=== PATIENT | male | born 1955 | race Caucasian/White ===

== ENCOUNTER 2020-08-17 20:06 | Inpatient (IN) | payer MEDICARE, OTHER, SELFPAY ==
--- NOTE | ~2020-08-17 | CT_ITS ---
EXAMINATION: CT brain wo con EXAM DATE: 08/17/2020 20:37 INDICATION: Transient alteration of awareness. Confusion. TECHNIQUE: Spiral CT of the head was performed without contrast. Axial, coronal and sagittal images were reviewed. The dose-length product (DLP) for this examination was 605.33 mGy-cm. The exposure w as tailored according to patient size, and iterative reconstruction (ASIR) was used as additional dos e reduction technique. Comparison is made to prior examination from 12/01/2018 . FINDINGS: Again there are a couple of moderate size left frontal lobe infarctions, middle cerebral a rtery distribution. Old left caudate head lacunar infarction. There is no acute intraparenchymal hemo rrhage. No evidence of intraparenchymal brain mass lesion. No evidence of acute infarction. Please note that initial head CT has limited sensitivity for small or acute infarctions. There is mild per iventricular and subcortical hypodensity, nonspecific but probably related to small vessel ischemic d isease. There is moderate prominence of the sulci and ventricles related to cerebral atrophy. The re is intracranial carotid arteriosclerosis. There are no extra-axial collections. There is no mass effect or midline shift. Patient has had bilateral ocular lens surgery. Soft tissue is unremarkabl e. The visualized sinuses and mastoid air cells are well aerated. IMPRESSION: 1. No acute intracranial findings. 2. Chronic age related findings. 3. Old left MCA distribution infarctions unchanged. Reviewed, dictated and finalized at location A.
--- NOTE | ~2020-08-17 | CT_ITS ---
EXAMINATION: CT abdomen pelvis wo con EXAM DATE: 08/17/2020 22:35 INDICATION: Abdominal pain, vomiting . TECHNIQUE: Spiral CT of the abdomen and pelvis was performed without contrast. Axial, coronal and s agittal images of the abdomen and pelvis were reviewed. The dose-length product (DLP) for this exami nation was 1247.96 mGy-cm. The exposure was tailored according to patient size (auto mA exposure con trol), and iterative reconstruction (ASIR) was used as additional dose reduction technique. There is no prior study for comparison. FINDINGS: There is hepatic steatosis without suspicious focal lesion identified. Spleen, adrenal glan ds, pancreas are unremarkable. Gallbladder is unremarkable. No biliary obstruction. There is left inferior calyceal stone measuring 7 mm. No ureteral stones or hydronephrosis.There is an exophytic le ft renal lesion off the posterior cortex midpole measuring about 1.3 cm, isodense to the renal parenc hyma. Could be a hemorrhagic cyst or solid mass. The prostate is unremarkable. Small left inguinal fa t-containing hernia. The bladder is unremarkable. There is no retroperitoneal or pelvic lymphadenop athy. There is mild scattered arteriosclerotic disease. Small umbilical fat-containing hernia. Ileocolic anastomosis site. Possible appendectomy. Distal aspect of the esophagus appears edematous, probably esophagitis. The stomach and small bowel are unremarkable. There is expected amount of colo magen stool. No free intraperitoneal gas. The heart is normal in size. There are no pericardial or pleural effusions. The lung bases are unremarkable. The bones are unremarkable. IMPRESSION: 1. No acute intra-abdominal findings. 2. Indeterminate left renal mass, could be hemorrhagic cyst or solid. Nonemergent follow-up kidney u ltrasound might be enough to distinguish. 3. Left nephrolithiasis. 4. Probable esophagitis. 5. Hepatic steatosis. 6. Small hernias. Reviewed, dictated and finalized at location A. IMPRESSION: 1. No acute intra-abdominal findings. 2. Indeterminate left renal mass, could be hemorrhagic cyst or solid. Nonemerg ent follow-up kidney ultrasound might be enough to distinguish. 3. Left nephrolithiasis. 4. Probable esophagitis. 5. Hepatic steatosis. 6. Small hernias.
--- NOTE | ~2020-08-17 | CT_ITS ---
EXAMINATION:CT chest high resolution wo ks DATE: 08/20/2020 14:20 INDICATION: Leukocytosis. TECHNIQUE: Computed tomography (CT) of the chest was performed without intravenous contrast. Automate d exposure control and iterative reconstruction technique were employed. The dose-length product (DLP ) was 446.44 mGy-cm. COMPARISON: CT abdomen and pelvis 08/17/2020 FINDINGS: There is mild emphysema. There is mild scarring at the lung apices. There is a 2 mm nodule in right middle lobe, likely benign. There is a 3 mm nodule in right upper lobe, likely benign. There is a 4 mm nodule left major fissure, likely benign. There is mild atelectasis bilaterally. No pleura l effusion. The heart size is normal. There are coronary artery calcifications. No pericardial effusi on. There is mild bilateral gynecomastia. There is diffuse hepatic steatosis. There is mild thoracic spondylosis. IMPRESSION: 1. Mild emphysema. 2. Diffuse hepatic steatosis. Reviewed, dictated and finalized at location B.
--- NOTE | ~2020-08-17 | XR_ITS ---
EXAMINATION: XR chest 1V portable EXAM DATE: 08/17/2020 20:30 INDICATION: Transient alteration of awareness. TECHNIQUE: Portable AP frontal chest x-ray was obtained. Comparison is made to prior examination from 12/01/2018. FINDINGS: The lungs are clear. There are no pleural effusions. The cardiomediastinal silhouette is within normal limits. There is no pneumothorax suspected. The bones and soft tissues are unremarkab le. IMPRESSION: No acute cardiopulmonary findings. Reviewed, dictated and finalized at location A.
[2020-08-17 20:06] VITALS: BP 183/96; PULSE 113; RESP 16; TEMP 36.8; O2SAT 94
--- NOTE | 2020-08-17 20:19 | ECG_ITS ---
Measurements Intervals [place] Rate: 80 P: 56 WV: 148 QRS: 77 QRSD: 82 T: 83 QT: 379 QTc: 438 Interpretive Statements SINUS RHYTHM WITH SINUS ARRHYTHMIA ATRIAL PREMATURE COMPLEXES POSSIBLE LEFT ATRIAL ENLARGEMENT BASELINE ARTIFACT- V1, V4-V6 BORDERLINE ECG Electronically Signed On 08-18-2020 6:53:48 CDT by Nicolás Jameson D.O.
--- NOTE | 2020-08-17 20:45 | ED.GENADULT ---
HPI - General Adult General Chief complaint: Altered Mental Status Stated complaint: ams Time Seen by Provider: 08/17/20 20:17 Source: patient and family History of Present Illness HPI narrative: Patient is a 64 y/o male brought in by EMS for altered mental status. It's unknown how long this has been going on. Daughter states that when she attempted to call him and he sound confused. She states that she has been trying to call him and sometimes he does not answer, but it's not unusual for him. However, he is more confused today. Daughter states that it's been a few days when he last sound normal for himself. He has been vomiting for several days. Patient is poor historian and unable to provide additional history. Related Data Home Medications Medication Instructions Recorded Confirmed furosemide [Lasix] 10 mg PO DAILY 08/17/20 08/18/20 insulin glargine 33 unit SUBCUT DAILY 08/17/20 08/17/20 quetiapine [Seroquel] 100 mg PO HS 08/17/20 08/17/20 atorvastatin 20 mg PO HS 08/18/20 08/18/20 lisinopril 2.5 mg PO DAILY 08/18/20 08/18/20 pioglitazone 30 mg PO DAILY 08/18/20 08/18/20 Allergies Allergy/AdvReac Type Severity Reaction Status Date / Time varenicline Allergy Unknown Unknown Verified 03/04/19 18:22 Review of Systems Review of Systems: ROS unobtainable: Yes unobtainable due to mental status [facility] Social History Social History Smoking packs per day: 1 Smoking cigarettes per day: 20.0 Smoking status: Current every day smoker Tobacco type: cigarettes Substance use: current Substance use type: marijuana Spiritual care concerns: No Exam Const: General: well developed Orientation/consciousness: oriented to person and confusion HENMT: Head: normocephalic Ears: external ears normal General nose exam: Normal external nose present Eyes: General: appearance normal, both eyes and all related structures Conjunctivae: conjunctivae normal Neck: Neck: normal visual inspection and full ROM Chest: Chest palpation & inspection: normal inspection of the chest and no tenderness Resp: Effort & Inspection: normal respiratory effort Auscultation: clear to auscultation bilaterally Cardio: Rate: tachycardic Rhythm: regular rhythm GI: GI Palp: No abdominal tenderness and Yes Soft to palpation Skin: General skin exam: normal color and turgor normal Neuro: General: oriented to person and confusion Cognition (Neuro): abnormal cognition Extrem: General: normal to inspection, full ROM and no pedal edema Psych: Appearance: grossly normal Mental Status: mental status grossly normal Affect: normal affect Course Reevaluation(s) Reevaluation #1: A focus exam (Vital Signs Reviewed, Cardiopulmonary Exam, Capillary Refill Evaluation, Peripheral Pulse Evaluation and Skin Examination) performed. Date: 08/17/20 Time: 23:20 Consultations Consultation #1: Discussed with Dr. Quan, who agrees to accept to ICU and will consult. Date: 08/17/20 Time: 22:56 Consultation #2: Discussed with Dr. Looney, who agrees to admit. Date: 08/17/20 Time: 23:04 Vital Signs Vital signs: Vital Signs Temperature 36.8 C 08/17/20 20:06 Pulse Rate 113 H 08/17/20 20:06 Respiratory Rate 16 08/17/20 20:06 Blood Pressure 183/96 H 08/17/20 20:06 Pulse Oximetry 94 08/17/20 20:06 Temperature 36.4 C 08/22/20 14:00 Pulse Rate 82 08/22/20 14:00 Respiratory Rate 16 08/22/20 14:00 Blood Pressure 117/79 08/22/20 14:00 Pulse Oximetry 96 08/22/20 14:00 Medical Decision Making Vital Signs Vital Signs: Vital Signs Temperature 36.8 C 08/17/20 20:06 Pulse Rate 113 H 08/17/20 20:06 Respiratory Rate 16 08/17/20 20:06 Blood Pressure 183/96 H 08/17/20 20:06 Pulse Oximetry 94 08/17/20 20:06 Temperature 36.4 C 08/22/20 14:00 Pulse Rate 82 08/22/20 14:00 Respiratory Rate 16 08/22/20 14:00 Blood Pressure 117/79 08/22/20 14:00 Pulse Oximetry 96 08/22/20 14:00 Lab Data Resu
[2020-08-17 21:13] LABS: Basophils Absolute Auto 0.1 K/mm3 (0.0-0.1); Basophils Percent Auto 0.4 % (0.2-1.2); Hematocrit 44.8 % (42.0-52.0); Hemoglobin 15.1 g/dL (14.0-18.0); Immature Granulocyte Absolute 0.27 K/mm3 (0.00-0.031); Immature Granulocyte Percent A 1.1 % (0-0.5); Lymphocytes Absolute Auto 1.14 K/mm3 (0.9-3.2); Lymphocytes Percent Auto 4.7 % (18.3-44.2); Mean Corpuscular HGB Conc 33.7 g/dl (32-36); Mean Corpuscular Hemoglobin 28.5 pg (26-34); Mean Corpuscular Volume 84.7 fl (80-100); Mean Platelet Volume 10.7 fl (7.4-10.4); Monocytes Absolute Auto 1.1 K/mm3 (0.1-0.6); Monocytes Percent Auto 4.3 % (2.6-8.5); Neutrophils Absolute Auto 21.8 K/mm3 (1.3-6.7); Neutrophils Percent Auto 89.5 % (45.5-73.1); Platelet Count Result 422 k/mm3 (150-375); Red Blood Count 5.29 M/mm3 (4.6-6.20); Red Cell Distribution Width 13.2 % (11.5-14.5); White Blood Count 24.4 K/mm3 (4.5-10.0)
[2020-08-17] MEDS: ONDANSETRON HCL ODT 4 MG TABLET (21:16)
[2020-08-17 21:24] LABS: Albumin Level 4.9 g/dL (3.5-5.1); Alkaline Phosphatase 88 U/L (38-126); Anion Gap 24 mmol/L (8-16); Aspartate Amino Transferase 41 U/L (17-59); Bilirubin,Total 1.5 mg/dL (0.2-1.3); Blood Urea Nitrogen 23 mg/dL (9-20); Calcium 10.3 mg/dL (8.4-10.2); Carbon Dioxide 17 mmol/L (22-30); Chloride 96 mmol/L (98-107); Estimated Glomerular Filt Rate 44; Glucose 448 mg/dL (75-110); Potassium 4.5 mmol/L (3.4-5.0); Sodium 137 mmol/L (137-145)
[2020-08-17 21:36] LABS: Alanine Aminotransferase 51 U/L (4-50)
[2020-08-17] MEDS: LORazepam INJ (*CRX) 2 MG/ML VIAL 1 MG IV PUSH (21:45)
[2020-08-17 21:54] LABS: Alveolar/Arterial O2 Gradient 30.3 mmHg; Base Excess ABG -5.6 mEq/l (+/-2.0); Fractional Inspired Oxygen 21 %; Oxygen Content ABG 20.5 %vol (16.0-22.0); Oxygen Saturation ABG 98.2 % (95.0-100.0); Oxyhemoglobin 96.9 % THb (90.0-100.0); PO2 ABG 98.8 mmHg (80.0-100.0)
[2020-08-17 21:55] LABS: Device ROOM AIR; Modified Allen's Test Pass; PCO2 ABG 17.2 mmHg (35.0-45.0); Site Drawn LEFT RADIAL; pH ABG 7.528 (7.350-7.450)
[2020-08-17 22:06] LABS: Add Urine Microscopic? YES; Appearance Urine Clear (Clear); Bilirubin Urine Negative (Negative); Blood Urine 1+ (Negative); Color Urine Yellow (Yellow); Glucose Urine UA 3+ mg/dL (Negative); Ketones Urine 2+ mg/dL (Negative); Leukocyte Esterase Ur Negative LEU/UL (Negative); Nitrate Urine Negative (Negative); Protein Urine 3+ mg/dL (Negative); RBC Urine 0-2 /hpf (0-2); Specific Grav Ur 1.026 (1.001-1.035); Urobilinogen Urine Negative mg/dL (<2.0); WBC Urine 0-3 /hpf
[2020-08-17 22:35] LABS: Lactic Acid Reflex 5.5 mmol/L (0.7-2.1)
[2020-08-17 23:08] LABS: Beta-Hydroxybutyrate/Acetoacetate 6.03 mmol/L (0.02-0.27)
[2020-08-17 23:26] VITALS: BP 143/86; PULSE 102; RESP 18; O2SAT 96
[2020-08-18] VITALS (8 sets, daily range): BP systolic 120–170; BP diastolic 65–95; PULSE 85–133; RESP 13–20; TEMP 36.2–37.1; O2SAT 88–100
--- NOTE | 2020-08-18 00:12 | PM.IMHP ---
H&P: HPI History of Present Illness Date/Time: 08/18/20 00:12 Chief Complaint: ALTERED MENTAL STATUS Narrative: THIS IS A 64-YEAR-OLD MALE WITH PAST MEDICAL HISTORY SIGNIFICANT FOR TYPE 2 DIABETES MELLITUS INSULIN DEPENDENT BIPOLAR DISORDER STROKE RIGHT-SIDED HEMIPARESIS PATIENT LIVES AT ASSISTED LIVING FACILITY HE WAS BROUGHT TO THE EMERGENCY ROOM AFTER DAUGHTER WAS CONCERNED DUE TO NOT BEEN ABLE TO COMMUNICATE WITH HIM OVER THE PHONE HIS OWN CONFUSED COULD NOT GET HIS WORDS OUT PER DAUGHTER WHO IS AT BEDSIDE PATIENT HAS BEEN HAVING VOMITING FOR SEVERAL DAYS PATIENT IS UNABLE TO GIVE ANY HISTORY HOWEVER HE KNOWS THAT HE IS AT [facility] BUT HE CAN'T WHY HE IS IN THE HOSPITAL. PRELIMINARY WORKUP WAS SIGNIFICANT FOR DKA AN ELEVATED GLUCOSE AND BETA HYDROXYBUTYRATE. A CT OF THE HEAD WAS UNREMARKABLE WELL CT OF ABDOMEN AND PELVIS. PATIENT ALSO WITH ELEVATED LACTIC ACID. Review of Systems Review of Systems: ROS unobtainable: Yes unobtainable due to mental status Neurologic: Reports confusion Psychiatric: Psychiatric: Reports confusion Meds Home Medications and Allergies Home Medications Medication Instructions Recorded Confirmed Type atorvastatin 03/04/19 History cyclobenzaprine 10 mg PO TID PRN #15 tablet 03/04/19 Rx gabapentin 03/04/19 History midodrine mg 03/04/19 History quetiapine 03/04/19 History furosemide [Lasix] 20 mg PO BID 08/17/20 08/17/20 History insulin glargine 33 unit SUBCUT DAILY 08/17/20 08/17/20 History metformin 1,000 mg PO BID 08/17/20 08/17/20 History quetiapine [Seroquel] 100 mg PO HS 08/17/20 08/17/20 History Allergies Allergy/AdvReac Type Severity Reaction Status Date / Time varenicline Allergy Unknown Unknown Verified 03/04/19 18:22 Vital Signs Vital Signs - 24 hr 08/17/20 20:06 08/17/20 23:26 Temperature 98.3 F Pulse Rate 113 H 102 H Respiratory Rate 16 18 Blood Pressure 183/96 H 143/86 H Pulse Oximetry 94 96 Exam Const: General: well developed and confusion Orientation/consciousness: oriented to person and confusion HENMT: Head: normocephalic Ears: external ears normal General nose exam: Normal external nose present Eyes: General: appearance normal, both eyes and all related structures Conjunctivae: conjunctivae normal Neck: Neck: normal visual inspection and full ROM Chest: Chest palpation & inspection: normal inspection of the chest and no tenderness Resp: Effort & Inspection: normal respiratory effort Auscultation: clear to auscultation bilaterally Cardio: Rate: tachycardic Rhythm: regular rhythm GI: Inspection: other (OLD SURGICAL SCAR LIMITED ABDOMEN) GI Palp: No abdominal tenderness, Yes Soft to palpation and Yes No hepatosplenomegaly present Auscultation: normal bowel sounds Skin: General skin exam: normal color and turgor normal Neuro: General: oriented to person and confusion Cognition (Neuro): abnormal cognition Extrem: General: normal to inspection, full ROM and no pedal edema Psych: Appearance: grossly normal Mental Status: mental status grossly normal Affect: normal affect H&P: Results Labs Labs: Short CBC 08/17/20 Range/Units 21:07 WBC 24.4 H (4.5-10.0) K/mm3 Hgb 15.1 (14.0-18.0) g/dL Hct 44.8 (42.0-52.0) % Plt Count 422 H (150-375) k/mm3 BMP 08/17/20 21:07 Sodium 137 Potassium 4.5 Chloride 96 L Carbon Dioxide 17 L BUN 23 H Creatinine 1.60 H Glucose 448 H Calcium 10.3 H Liver Function 08/17/20 Range/Units 21:07 Total Bilirubin 1.5 H (0.2-1.3) mg/dL AST 41 (17-59) U/L ALT 51 H (4-50) U/L Alkaline Phosphatase 88 (38-126) U/L Albumin 4.9 (3.5-5.1) g/dL Urine 08/17/20 Range/Units 21:58 Urine Color Yellow (Yellow) Urine Appearance Clear (Clear) Urine pH 6.0 (5.0-9.0) Ur Specific [place] 1.026 (1.001-1.035) Urine Protein 3+ H (Negative) mg/dL Urine Glucose (UA) 3+ H (Negative) mg/dL Assessment and Plan Asse
--- NOTE | 2020-08-18 00:25 | PC.NURSE ---
This patient, Ralph Ruiz, was admitted to Intensive Care Unit-8. Patient/family oriented to hospital policies and general routines including ID bracelet, bed and alarms, visiting hours, pain management, procedures, bathroom and other care routines, personal items, smoking policy, room service/diet, and visiting hours. Information on how to activate the Rapid Response Team has been discussed. Patient/Family are encouraged to report perceived risks to care and to ask questions if they do not understand what they are told or what they should do.
[2020-08-18] MEDS: ONDANSETRON INJ 4 MG/2 ML VIAL (00:27)
[2020-08-18] MEDS: INSULIN HUMAN REGULAR (*BKC) 100 UNITS in SODIUM CHLORIDE 0.9% IV 99 ML 9 UNITS IV CONT (00:39)
[2020-08-18] MEDS: SODIUM CHLORIDE 0.9% IV 1,000 ML 150 ML IV CONT (00:40)
[2020-08-18 00:43] LABS: Glucose Point of Care > 500 (65-105)
[2020-08-18 00:54] LABS: Anion Gap 19 mmol/L (8-16); Blood Urea Nitrogen 26 mg/dL (9-20); Calcium 9.9 mg/dL (8.4-10.2); Carbon Dioxide 22 mmol/L (22-30); Chloride 97 mmol/L (98-107); Estimated Glomerular Filt Rate 47; Glucose 455 mg/dL (75-110); Magnesium 1.7 mg/dL (1.6-2.3); Phosphorus 3.2 mg/dL (2.5-4.5); Potassium 4.5 mmol/L (3.4-5.0); Sodium 138 mmol/L (137-145)
[2020-08-18 01:14] LABS: Reflex Lactic Acid Yes or No Add Lactic
[2020-08-18] MEDS: FUROSEMIDE INJ 40 MG/4 ML VIAL 10 MG IV PUSH (01:29)
[2020-08-18] MEDS: INSULIN HUMAN REGULAR (*BKC) 100 UNITS/ML 10 UNITS IV PUSH (01:29)
[2020-08-18 01:36] LABS: Glucose Point of Care 441 (65-105)
[2020-08-18] MEDS: HALOPERIDOL LACTATE 5 MG/ML VIAL IM (02:14)
[2020-08-18 02:33] LABS: Glucose Point of Care 331 (65-105)
[2020-08-18 03:37] LABS: Glucose Point of Care 236 (65-105)
[2020-08-18] MEDS: KCL 20 MEQ/D5/0.45% SOD CHL 1,000 ML 150 ML IV CONT (03:40)
[2020-08-18 04:42] LABS: Glucose Point of Care 233 (65-105)
[2020-08-18 05:30] LABS: Glucose Point of Care 203 (65-105)
[2020-08-18 06:24] LABS: Glucose Point of Care 189 (65-105)
[2020-08-18 06:36] LABS: Anion Gap 8 mmol/L (8-16); Blood Urea Nitrogen 29 mg/dL (9-20); Calcium 9.3 mg/dL (8.4-10.2); Carbon Dioxide 27 mmol/L (22-30); Chloride 106 mmol/L (98-107); Estimated Glomerular Filt Rate 44; Glucose 179 mg/dL (75-110); Potassium 3.9 mmol/L (3.4-5.0); Sodium 141 mmol/L (137-145)
[2020-08-18 07:29] LABS: Hemoglobin A1C 11.8 % (<5.7)
[2020-08-18] MEDS: SODIUM CHLORIDE 0.9% IV 1,000 ML 999 ML IV CONT (08:30)
[2020-08-18 08:35] LABS: Glucose Point of Care 106 (65-105)
[2020-08-18] MEDS: INSULIN GLARGINE (*BKC) 100 UNITS/ML 33 UNITS SUB-Q (08:39)
[2020-08-18] MEDS: MIDODRINE HCL 2.5 MG TABLET BY MOUTH ×3 (08:43→17:18)
--- NOTE | 2020-08-18 09:36 | WPDCNINT ---
Assessment and Plan Assessment and plan (1) DKA (diabetic ketoacidoses): Qualifiers: Diabetes mellitus complication detail: without coma Diabetes mellitus type: type 2 Qualified Code(s): E11.10 - Type 2 diabetes mellitus with ketoacidosis without coma Code(s): E11.10 - Type 2 diabetes mellitus with ketoacidosis without coma Status: Acute Assessment and Plan: Patient presented with altered mental status, nausea and vomiting for few days, elevated blood sugars, elevated beta hydroxybutyrate,, metabolic acidosis with increased anion gap -patient was given IV fluids, started on insulin infusion with correction of his anion gap -patient was transition to long-acting insulin and sliding scale insulin -will start Lantus and high-dose sliding scale -resume diabetic diet (2) Sepsis: Qualifiers: Sepsis acute organ dysfunction status: unspecified Sepsis type: sepsis due to unspecified organism Qualified Code(s): A41.9 - Sepsis, unspecified organism Code(s): A41.9 - Sepsis, unspecified organism Status: Acute Assessment and Plan: Patient with elevated WBC count, CT scan of the abdomen and pelvis not show any obvious signs of infection, chest x-ray did not show any acute cardiopulmonary disease -cultures have been obtained -on ceftriaxone and vancomycin, will deescalate if cultures are negative (3) Altered mental status: Code(s): R41.82 - Altered mental status, unspecified Status: Acute Assessment and Plan: Brain did not show any acute intracranial findings, old left MCA distribution infarctions unchanged, chronic age-related finding Additional Plan Discussed with patient updated with his condition and plan of care. Code status: Do not resuscitate Critical care time spent: 44 minutes This dictation may have been done utilizing a voice recognition system. Attempts have been made to correct errors. However, there may be uncorrected grammatical, spelling, and recognition errors present. Due to a high probability of clinically significant, life threatening deterioration, the patient required my highest level of preparedness to intervene emergently and I personally spent this critical care time directly and personally managing the patient. This critical care time included obtaining a history; examining the patient; pulse oximetry; ordering and review of studies; arranging urgent treatment with development of a management plan; evaluation of patient's response to treatment; frequent reassessment; and discussions with other providers. It was exclusive of separately billable procedures and treating other patients and teaching time. Please see Assessment and Plan section and the rest of the note for further information on patient assessment and treatment Operations Lead Consult Note Consult date: 08/18/20 Time Seen: 07:04 HPI: Ralph Ruiz is a 64 year old male with history of diabetes type 2, insulin dependent. Patient also has a history of bipolar disorder, history of stroke with right-sided hemiparesis. Patient lives in an assisted living facility and presented to the ED via EMS with altered mental status, confusion. According the medical records the daughter started patient was confused and could not get his words correct. She also states that he has been vomiting for several days. In the ER patient was found to be in DKA, with elevated to hydroxybutyrate, elevated anion gap and elevated blood sugars. Patient also had leukocytosis and lactic acidosis along with acute kidney injury patient was given 3 L of IV fluids in the ER, started on insulin infusion and transferred to the ICU for further management. Patient seen and examined this the ICU. Is awake, alert, oriented x2 he did not know the year. Able to answer all questions and follows simple commands. Patient was given additional IV fluid bolus since urine output was low. Anion gap has closed, blood sugars have been good
[2020-08-18 10:18] LABS: Basophils Absolute Auto 0.1 K/mm3 (0.0-0.1); Basophils Percent Auto 0.3 % (0.2-1.2); Hematocrit 37.2 % (42.0-52.0); Hemoglobin 12.5 g/dL (14.0-18.0); Immature Granulocyte Absolute 0.26 K/mm3 (0.00-0.031); Lymphocytes Absolute Auto 1.47 K/mm3 (0.9-3.2); Lymphocytes Percent Auto 5.5 % (18.3-44.2); Mean Corpuscular HGB Conc 33.6 g/dl (32-36); Mean Corpuscular Hemoglobin 28.9 pg (26-34); Mean Corpuscular Volume 85.9 fl (80-100); Mean Platelet Volume 10.4 fl (7.4-10.4); Monocytes Absolute Auto 2.7 K/mm3 (0.1-0.6); Neutrophils Absolute Auto 22.2 K/mm3 (1.3-6.7); Neutrophils Percent Auto 83.2 % (45.5-73.1); Platelet Count Result 285 k/mm3 (150-375); Red Blood Count 4.33 M/mm3 (4.6-6.20); Red Cell Distribution Width 13.4 % (11.5-14.5); White Blood Count 26.7 K/mm3 (4.5-10.0)
[2020-08-18 10:30] LABS: Anion Gap 7 mmol/L (8-16); Blood Urea Nitrogen 26 mg/dL (9-20); Calcium 8.8 mg/dL (8.4-10.2); Carbon Dioxide 24 mmol/L (22-30); Chloride 108 mmol/L (98-107); Estimated Glomerular Filt Rate 44; Glucose 201 mg/dL (75-110); Potassium 4.1 mmol/L (3.4-5.0); Sodium 139 mmol/L (137-145)
[2020-08-18 10:31] LABS: Lactic Acid Reflex 1.1 mmol/L (0.7-2.1)
--- NOTE | 2020-08-18 10:45 | PM.IMPN ---
Progress Note: A&P Assessment and Plan (1) DKA (diabetic ketoacidoses): Qualifiers: Diabetes mellitus complication detail: without coma Diabetes mellitus type: type 2 Qualified Code(s): E11.10 - Type 2 diabetes mellitus with ketoacidosis without coma Code(s): E11.10 - Type 2 diabetes mellitus with ketoacidosis without coma Status: Acute Assessment and Plan: Patient was admitted to the ICU treated with DKA protocol DKA has resolved Switched to Lantus and high-dose insulin sliding scale Started on diabetic diet (2) Sepsis: Qualifiers: Sepsis acute organ dysfunction status: unspecified Sepsis type: sepsis due to unspecified organism Qualified Code(s): A41.9 - Sepsis, unspecified organism Code(s): A41.9 - Sepsis, unspecified organism Status: Acute Assessment and Plan: CT scan was negative for any acute finding Chest x-ray negative for infiltrate Patient still have high leukocytosis but clinically does not show any sign or symptom of sepsis Continue IV antibiotics pending culture I do not think patient has sepsis pending culture (3) Altered mental status: Code(s): R41.82 - Altered mental status, unspecified Status: Acute Assessment and Plan: Probably Acute metabolic encephalopathy secondary to DKA improving CT scan of the head negative for acute finding other than a old stroke Subjective Date/time seen: 08/18/20 10:45 Interval history: Patient seen and examined Patient was admitted to the hospital with altered mental status was found to have severe metabolic acidosis secondary to DKA was admitted to the ICU was treated with IV fluid and IV insulin DKA has resolved IV insulin was stopped and patient was switched to Lantus and high-dose insulin sliding scale also patient has significant leukocytosis CT scan of the abdomen and pelvis was negative chest x-ray was negative UA was not significant still have significant leukocytosis patient treated with IV antibiotic pending culture probably the leukocytosis is reactive CT scan of the head was done shows old stroke Patient feels weak Patient denies fever headache chest pain shortness of breath I am seeing the patient for DKA Exam Narrative: Exam Narrative: Alert oriented x2 Chest no wheeze crackles Abdomen nontender nondistended CVS S1 + S2 Lower extremity edema Neurological exam nonfocal weakness or facial asymmetry Objective Data Vital Signs Vital Signs: Vital Signs - 24 hr 08/17/20 20:06 08/17/20 23:26 08/18/20 00:29 Temperature 98.3 F 98.7 F Pulse Rate 113 H 102 H 112 H Respiratory Rate 16 18 13 Blood Pressure 183/96 H 143/86 H 170/91 H Pulse Oximetry 94 96 99 08/18/20 02:00 08/18/20 04:00 08/18/20 06:00 Temperature 98.5 F Pulse Rate 116 H 115 H 100 Respiratory Rate 20 20 18 Blood Pressure 133/91 H 120/95 H 145/65 H Pulse Oximetry 100 99 88 L 08/18/20 08:00 08/18/20 10:00 Temperature 97.6 F Pulse Rate 107 H 94 Respiratory Rate 18 18 Blood Pressure 126/74 126/74 Pulse Oximetry 97 99 Intake/Output Intake/Output: Intake & Output 08/15/20 08/16/20 08/17/20 08/18/20 23:59 23:59 23:59 23:59 Intake Total 50 1440 Output Total 350 Balance 50 1090 Meds/Results Medications: Active Medications Generic Name Dose Route Start Last Admin Trade Name Freq PRN Reason Stop Dose Admin Dextrose 12.5 gm 08/17/20 21:36 Dextrose 50% 25 Gm/50 Ml Syringe IV PUSH PRN PRN Hypoglycemia Protocol Enoxaparin Sodium 40 mg 08/18/20 10:00 Enoxaparin 40 Mg/0.4 Ml Syringe SUB-Q DAILY ADI Glucagon 1 mg 08/17/20 21:36 Glucagon For Inj 1 Mg Vial IM PRN PRN Hypoglycemia Protocol Glucose 15 gm 08/17/20 21:36 Glucose Oral Gel 15 Gm Of Glucse In 37.5 Gm Tube PO PRN PRN Hypoglycemia Protocol Dextrose 1,000 mls @ 100 mls/hr 08/17/20 21:36 Dextrose 5% 1,000 Ml IVPB PRN PRN Hypoglycemia Prot
[2020-08-18] MEDS: ENOXAPARIN 40 MG/0.4 ML SYRINGE SUB-Q (11:04)
[2020-08-18 11:50] LABS: Glucose Point of Care 323 (65-105)
[2020-08-18] MEDS: INSULIN ASPART (*BKC) 100 UNITS/ML SUB-Q ×2 (12:25→17:18)
--- NOTE | 2020-08-18 13:55 | PCDIET ---
Discussed carbohydrate control with patient bedside. See Nutritional Teaching for additional details.
--- NOTE | 2020-08-18 16:26 | PC.NURSE ---
This patient, Ralph Ruiz, was transferred to [facility] on 08/18/20 at 1627. Personal belongings sent with patient. Report given to Maury SINGH. Appropriate documentation sent with patient.
--- NOTE | 2020-08-18 16:29 | PC.NURSE ---
This patient, Ralph Ruiz, was received from ICU on 08/18/20 at 1625. Patient/family oriented to unit policies and routines. Received report from SAMANTHA De La Torre.
[2020-08-18 17:33] LABS: Glucose Point of Care 290 (65-105)
[2020-08-18] MEDS: QUEtiapine FUMARATE 100 MG TABLET PO (20:30)
[2020-08-18 21:47] LABS: Glucose Point of Care 226 (65-105)
[2020-08-19 05:51] LABS: Estimated CRCL calculation 57 ml/min; Estimated Glomerular Filt Rate 51
[2020-08-19 06:00] VITALS: BP 138/74; PULSE 110; RESP 21; TEMP 36.7; O2SAT 100
[2020-08-19] MEDS: INSULIN ASPART (*BKC) 100 UNITS/ML SUB-Q ×4 (08:20→17:37)
[2020-08-19 08:21] LABS: Glucose Point of Care 236 (65-105)
[2020-08-19] MEDS: INSULIN GLARGINE (*BKC) 100 UNITS/ML 33 UNITS SUB-Q (08:21)
[2020-08-19] MEDS: MIDODRINE HCL 2.5 MG TABLET BY MOUTH ×3 (08:24→17:30)
[2020-08-19] MEDS: ENOXAPARIN 40 MG/0.4 ML SYRINGE SUB-Q (08:24)
[2020-08-19 10:55] LABS: Basophils Absolute Auto 0.1 K/mm3 (0.0-0.1); Basophils Percent Auto 0.5 % (0.2-1.2); Eosinophils Percent Auto 0.2 % (0-4.4); Hematocrit 38.6 % (42.0-52.0); Hemoglobin 12.5 g/dL (14.0-18.0); Immature Granulocyte Absolute 0.14 K/mm3 (0.00-0.031); Immature Granulocyte Percent A 0.6 % (0-0.5); Lymphocytes Absolute Auto 1.68 K/mm3 (0.9-3.2); Lymphocytes Percent Auto 7.4 % (18.3-44.2); Mean Corpuscular HGB Conc 32.4 g/dl (32-36); Mean Corpuscular Hemoglobin 28.7 pg (26-34); Mean Corpuscular Volume 88.5 fl (80-100); Mean Platelet Volume 10.7 fl (7.4-10.4); Monocytes Absolute Auto 1.6 K/mm3 (0.1-0.6); Monocytes Percent Auto 7.1 % (2.6-8.5); Neutrophils Percent Auto 84.2 % (45.5-73.1); Platelet Count Result 257 k/mm3 (150-375); Red Blood Count 4.36 M/mm3 (4.6-6.20); Red Cell Distribution Width 13.4 % (11.5-14.5); White Blood Count 22.6 K/mm3 (4.5-10.0)
[2020-08-19] MEDS: FUROSEMIDE 10 MG TABLET PO (11:07)
[2020-08-19] MEDS: lisinopriL 2.5 MG TABLET PO (11:07)
[2020-08-19] MEDS: PIOGLITAZONE HCL 30 MG TABLET PO (11:07)
[2020-08-19 11:09] LABS: Alanine Aminotransferase 24 U/L (4-50); Albumin Level 3.7 g/dL (3.5-5.1); Alkaline Phosphatase 53 U/L (38-126); Anion Gap 8 mmol/L (8-16); Aspartate Amino Transferase 23 U/L (17-59); Bilirubin,Total 1.1 mg/dL (0.2-1.3); Blood Urea Nitrogen 22 mg/dL (9-20); Calcium 8.5 mg/dL (8.4-10.2); Carbon Dioxide 26 mmol/L (22-30); Chloride 100 mmol/L (98-107); Estimated CRCL calculation 60 ml/min; Estimated Glomerular Filt Rate 55; Glucose 286 mg/dL (75-110); Potassium 4.3 mmol/L (3.4-5.0); Sodium 134 mmol/L (137-145)
[2020-08-19 11:42] LABS: Glucose Point of Care 263 (65-105)
--- NOTE | 2020-08-19 12:05 | PM.IMPN ---
Progress Note: A&P Assessment and Plan (1) DKA (diabetic ketoacidoses): Qualifiers: Diabetes mellitus complication detail: without coma Diabetes mellitus type: type 2 Qualified Code(s): E11.10 - Type 2 diabetes mellitus with ketoacidosis without coma Code(s): E11.10 - Type 2 diabetes mellitus with ketoacidosis without coma Status: Acute Assessment and Plan: Patient was admitted to the ICU treated with DKA protocol DKA has resolved Switched to Lantus and high-dose insulin sliding scale uncontrolled insulin dose was adjusted Started on diabetic diet (2) Sepsis: Qualifiers: Sepsis acute organ dysfunction status: unspecified Sepsis type: sepsis due to unspecified organism Qualified Code(s): A41.9 - Sepsis, unspecified organism Code(s): A41.9 - Sepsis, unspecified organism Status: Acute Assessment and Plan: CT scan was negative for any acute finding Chest x-ray negative for infiltrate Patient still have high leukocytosis but clinically does not show any sign or symptom of sepsis Continue IV antibiotics pending culture Patient still have significant leukocytosis Continue antibiotics Follow culture result If no improvement in a.m. consider CT scan of the chest I do not think patient has encephalitis (3) Altered mental status: Code(s): R41.82 - Altered mental status, unspecified Status: Acute Assessment and Plan: Probably Acute metabolic encephalopathy secondary to DKA improving CT scan of the head negative for acute finding other than a old stroke Subjective Date/time seen: 08/19/20 12:05 Interval history: Patient seen and examined Patient was admitted to the hospital with altered mental status was found to have severe metabolic acidosis secondary to DKA was admitted to the ICU was treated with IV fluid and IV insulin DKA has resolved IV insulin was stopped and patient was switched to Lantus and high-dose insulin sliding scale also patient has significant leukocytosis CT scan of the abdomen and pelvis was negative chest x-ray was negative UA was not significant still have significant leukocytosis patient treated with IV antibiotic pending culture probably the leukocytosis is reactive CT scan of the head was done shows old stroke Patient still have significant leukocytosis Hyperglycemia uncontrolled Patient denies fever headache chest pain shortness of breath I am seeing the patient for DKA Exam Narrative: Exam Narrative: Alert oriented x2 Chest no wheeze crackles Abdomen nontender nondistended CVS S1 + S2 Lower extremity edema Neurological exam nonfocal weakness or facial asymmetry Objective Data Vital Signs Vital Signs: Vital Signs - 24 hr 08/18/20 16:10 08/18/20 22:00 08/19/20 06:00 Temperature 97.2 F L 98.7 F 98.1 F Pulse Rate 86 85 110 H Respiratory Rate 20 18 21 H Blood Pressure 152/74 H 151/71 H 138/74 Pulse Oximetry 99 97 100 Intake/Output Intake/Output: Intake & Output 08/16/20 08/17/20 08/18/20 08/19/20 23:59 23:59 23:59 23:59 Intake Total 50 1670 1190 Output Total 350 1600 Balance 50 1320 -410 Meds/Results Medications: Active Medications Generic Name Dose Route Start Last Admin Trade Name Freq PRN Reason Stop Dose Admin Atorvastatin Calcium 20 mg 08/19/20 21:00 Atorvastatin 20 Mg Tablet PO HS ADI Dextrose 12.5 gm 08/17/20 21:36 Dextrose 50% 25 Gm/50 Ml Syringe IV PUSH PRN PRN Hypoglycemia Protocol Enoxaparin Sodium 40 mg 08/18/20 10:00 08/19/20 08:24 Enoxaparin 40 Mg/0.4 Ml Syringe SUB-Q 40 mg DAILY ADI Administration Furosemide 10 mg 08/19/20 09:00 08/19/20 11:07 Furosemide 10 Mg Tablet PO 10 mg DAILY ADI Administration Glucagon 1 mg 08/17/20 21:36 Glucagon For Inj 1 Mg Vial IM PRN PRN Hypoglycemia Protocol Glucose 15 gm 08/17/20 21:36 Glucose Oral Gel 15 Gm Of Glucse In 37.5 Gm Tube PO PRN PRN Hypoglyce
[2020-08-19 14:00] VITALS: BP 128/96; PULSE 99; RESP 18; TEMP 36.9; O2SAT 70
[2020-08-19 17:42] LABS: Glucose Point of Care 211 (65-105)
[2020-08-19 20:17] LABS: Glucose Point of Care 158 (65-105)
[2020-08-19] MEDS: QUEtiapine FUMARATE 100 MG TABLET PO (21:27)
[2020-08-19] MEDS: ATORVASTATIN 20 MG TABLET PO (21:27)
[2020-08-19 22:00] VITALS: BP 153/84; PULSE 80; RESP 20; TEMP 36.8; O2SAT 98
[2020-08-19 22:28] VITALS: O2SAT 97
[2020-08-20 06:00] VITALS: BP 124/60; PULSE 103; RESP 21; TEMP 36.3; O2SAT 100
[2020-08-20] MEDS: INSULIN GLARGINE (*BKC) 100 UNITS/ML 33 UNITS SUB-Q (09:26)
[2020-08-20] MEDS: INSULIN ASPART (*BKC) 100 UNITS/ML SUB-Q ×5 (09:27→17:49)
[2020-08-20 09:30] VITALS: BMI 30.9
[2020-08-20] MEDS: MIDODRINE HCL 2.5 MG TABLET BY MOUTH ×3 (09:32→17:49)
[2020-08-20] MEDS: lisinopriL 2.5 MG TABLET PO (09:32)
[2020-08-20] MEDS: FUROSEMIDE 10 MG TABLET PO (09:32)
[2020-08-20] MEDS: ENOXAPARIN 40 MG/0.4 ML SYRINGE SUB-Q (09:33)
[2020-08-20] MEDS: PIOGLITAZONE HCL 30 MG TABLET PO (09:33)
[2020-08-20 09:59] LABS: Glucose Point of Care 217 (65-105)
[2020-08-20 11:09] LABS: Basophils Absolute Auto 0.1 K/mm3 (0.0-0.1); Basophils Percent Auto 0.6 % (0.2-1.2); Eosinophils Absolute Auto 0.1 K/mm3 (0-0.3); Eosinophils Percent Auto 0.4 % (0-4.4); Hematocrit 39.2 % (42.0-52.0); Hemoglobin 12.9 g/dL (14.0-18.0); Immature Granulocyte Absolute 0.11 K/mm3 (0.00-0.031); Immature Granulocyte Percent A 0.7 % (0-0.5); Lymphocytes Absolute Auto 1.62 K/mm3 (0.9-3.2); Lymphocytes Percent Auto 10.1 % (18.3-44.2); Mean Corpuscular HGB Conc 32.9 g/dl (32-36); Mean Corpuscular Hemoglobin 28.4 pg (26-34); Mean Corpuscular Volume 86.3 fl (80-100); Mean Platelet Volume 10.3 fl (7.4-10.4); Monocytes Absolute Auto 1.2 K/mm3 (0.1-0.6); Monocytes Percent Auto 7.7 % (2.6-8.5); Neutrophils Absolute Auto 12.9 K/mm3 (1.3-6.7); Neutrophils Percent Auto 80.5 % (45.5-73.1); Platelet Count Result 264 k/mm3 (150-375); Red Blood Count 4.54 M/mm3 (4.6-6.20); Red Cell Distribution Width 13.6 % (11.5-14.5)
[2020-08-20 11:20] LABS: Alanine Aminotransferase 21 U/L (4-50); Albumin Level 3.7 g/dL (3.5-5.1); Alkaline Phosphatase 58 U/L (38-126); Anion Gap 8 mmol/L (8-16); Aspartate Amino Transferase 19 U/L (17-59); Bilirubin,Total 0.9 mg/dL (0.2-1.3); Blood Urea Nitrogen 21 mg/dL (9-20); Calcium 8.4 mg/dL (8.4-10.2); Carbon Dioxide 25 mmol/L (22-30); Chloride 98 mmol/L (98-107); Estimated CRCL calculation 64 ml/min; Estimated Glomerular Filt Rate > 60; Glucose 274 mg/dL (75-110); Sodium 131 mmol/L (137-145)
[2020-08-20 12:24] LABS: Glucose Point of Care 213 (65-105)
--- NOTE | 2020-08-20 13:42 | PM.IMPN ---
Progress Note: A&P Assessment and Plan (1) DKA (diabetic ketoacidoses): Qualifiers: Diabetes mellitus complication detail: without coma Diabetes mellitus type: type 2 Qualified Code(s): E11.10 - Type 2 diabetes mellitus with ketoacidosis without coma Code(s): E11.10 - Type 2 diabetes mellitus with ketoacidosis without coma Status: Resolved Assessment and Plan: DKA resolved Switched to Lantus and high-dose insulin sliding scale Started on diabetic diet (2) Sepsis: Qualifiers: Sepsis acute organ dysfunction status: unspecified Sepsis type: sepsis due to unspecified organism Qualified Code(s): A41.9 - Sepsis, unspecified organism Code(s): A41.9 - Sepsis, unspecified organism Status: Acute Assessment and Plan: CT scan abdo was negative- Apart from Indeterminate left renal mass, could be hemorrhagic cyst or solid. Chest x-ray negative for infiltrate Patient still have high leukocytosis but clinically does not show any sign or symptom of sepsis Continue IV antibiotics pending culture Patient still have significant leukocytosis Continue antibiotics Await blood cultures and order ct chest today. (3) Altered mental status: Code(s): R41.82 - Altered mental status, unspecified Status: Resolved Assessment and Plan: CT scan of the head is negative. AMS is improved Subjective Date/time seen: 08/20/20 13:42 Interval history: 64 year old man Patient was admitted to the hospital with altered mental status was found to have severe metabolic acidosis secondary to DKA was admitted to the ICU was treated with IV fluid and IV insulin DKA has resolved IV insulin was stopped and patient was switched to Lantus and high-dose insulin sliding scale also patient has significant leukocytosis CT scan of the abdomen and pelvis was negative chest x-ray was negative UA was not significant still have significant leukocytosis patient treated with IV antibiotic pending culture probably the leukocytosis is reactive CT scan of the head was done shows old stroke Patient still [place] [id number] [id number]. I will order CT CH[facility] explained pt that i cannot discharge until is wcc is better. Review of Systems Review of Systems: All systems reviewed & are unremarkable except as noted in HPI and below Exam Narrative: Exam Narrative: Alert oriented x2 Chest clear lungs Abdomen nontender nondistended CVS S1 + S2 Lower extremity edema Neurological exam nonfocal weakness or facial asymmetry Objective Data Vital Signs Vital Signs: Vital Signs - 24 hr 08/19/20 14:00 08/19/20 22:00 08/19/20 22:28 Temperature 36.9 C 36.8 C Pulse Rate 99 80 Respiratory Rate 18 20 Blood Pressure 128/96 H 153/84 H Pulse Oximetry 70 L 98 97 08/20/20 06:00 Temperature 36.3 C L Pulse Rate 103 H Respiratory Rate 21 H Blood Pressure 124/60 Pulse Oximetry 100 Intake/Output Intake/Output: Intake & Output 08/17/20 08/18/20 08/19/20 08/20/20 23:59 23:59 23:59 23:59 Intake Total 50 1670 2910 890 Output Total 350 2800 1100 Balance 50 1320 110 -210 Meds/Results Medications: Active Medications Generic Name Dose Route Start Last Admin Trade Name Freq PRN Reason Stop Dose Admin Atorvastatin Calcium 20 mg 08/19/20 21:00 08/19/20 21:27 Atorvastatin 20 Mg Tablet PO 20 mg HS ADI Administration Dextrose 12.5 gm 08/17/20 21:36 Dextrose 50% 25 Gm/50 Ml Syringe IV PUSH PRN PRN Hypoglycemia Protocol Enoxaparin Sodium 40 mg 08/18/20 10:00 08/20/20 09:33 Enoxaparin 40 Mg/0.4 Ml Syringe SUB-Q 40 mg DAILY ADI Administration Furosemide 10 mg 08/19/20 09:00 08/20/20 09:32 Furosemide 10 Mg Tablet PO 10 mg DAILY ADI Administration Glucagon 1 mg 08/17/20 21:36 Glucagon For Inj 1 Mg Vial IM PRN PRN Hypoglycemia Protocol Glucose 15 gm 08/17/20 21:36 Glucose Oral Gel 15 Gm O
[2020-08-20 14:00] VITALS: BP 144/86; PULSE 98; RESP 18; TEMP 36.6; O2SAT 100
[2020-08-20 17:17] LABS: Glucose Point of Care 156 (65-105)
[2020-08-20 21:09] VITALS: BP 149/75; PULSE 91; RESP 14; TEMP 36.7; O2SAT 99
[2020-08-20] MEDS: QUEtiapine FUMARATE 100 MG TABLET PO (21:26)
[2020-08-20] MEDS: ATORVASTATIN 20 MG TABLET PO (21:26)
[2020-08-20 21:29] LABS: Glucose Point of Care 161 (65-105)
[2020-08-20 22:50] VITALS: O2SAT 100
[2020-08-21 05:53] LABS: Hematocrit 42.8 % (42.0-52.0); Hemoglobin 14.1 g/dL (14.0-18.0); Mean Corpuscular HGB Conc 32.9 g/dl (32-36); Mean Corpuscular Hemoglobin 28.8 pg (26-34); Mean Corpuscular Volume 87.3 fl (80-100); Mean Platelet Volume 10.2 fl (7.4-10.4); Platelet Count Result 262 k/mm3 (150-375); Red Cell Distribution Width 13.3 % (11.5-14.5); White Blood Count 15.3 K/mm3 (4.5-10.0)
[2020-08-21 06:12] LABS: Anion Gap 8 mmol/L (8-16); Blood Urea Nitrogen 20 mg/dL (9-20); Calcium 8.4 mg/dL (8.4-10.2); Carbon Dioxide 24 mmol/L (22-30); Chloride 102 mmol/L (98-107); Estimated CRCL calculation 64 ml/min; Estimated Glomerular Filt Rate > 60; Glucose 187 mg/dL (75-110); Potassium 3.6 mmol/L (3.4-5.0); Sodium 134 mmol/L (137-145)
[2020-08-21 08:00] VITALS: BP 118/72; PULSE 96; RESP 16; TEMP 36.6; O2SAT 100
[2020-08-21 08:15] VITALS: BP 149/82; PULSE 100; TEMP 36.5
[2020-08-21 08:18] LABS: Glucose Point of Care 212 (65-105)
[2020-08-21] MEDS: PIOGLITAZONE HCL 30 MG TABLET PO (08:22)
[2020-08-21] MEDS: ENOXAPARIN 40 MG/0.4 ML SYRINGE SUB-Q (08:22)
[2020-08-21] MEDS: lisinopriL 2.5 MG TABLET PO (08:23)
[2020-08-21] MEDS: FUROSEMIDE 10 MG TABLET PO (08:23)
[2020-08-21] MEDS: MIDODRINE HCL 2.5 MG TABLET BY MOUTH ×3 (08:23→16:43)
[2020-08-21] MEDS: INSULIN ASPART (*BKC) 100 UNITS/ML SUB-Q ×4 (08:24→17:24)
[2020-08-21] MEDS: INSULIN GLARGINE (*BKC) 100 UNITS/ML 33 UNITS SUB-Q (08:25)
[2020-08-21 10:33] LABS: Basophils Absolute Auto 0.1 K/mm3 (0.0-0.1); Basophils Percent Auto 0.6 % (0.2-1.2); Eosinophils Absolute Auto 0.1 K/mm3 (0-0.3); Eosinophils Percent Auto 0.6 % (0-4.4); Hematocrit 40.5 % (42.0-52.0); Hemoglobin 13.4 g/dL (14.0-18.0); Immature Granulocyte Absolute 0.12 K/mm3 (0.00-0.031); Immature Granulocyte Percent A 0.8 % (0-0.5); Lymphocytes Absolute Auto 1.65 K/mm3 (0.9-3.2); Lymphocytes Percent Auto 11.5 % (18.3-44.2); Mean Corpuscular HGB Conc 33.1 g/dl (32-36); Mean Corpuscular Hemoglobin 28.6 pg (26-34); Mean Corpuscular Volume 86.5 fl (80-100); Mean Platelet Volume 10.5 fl (7.4-10.4); Monocytes Absolute Auto 1.1 K/mm3 (0.1-0.6); Monocytes Percent Auto 7.8 % (2.6-8.5); Neutrophils Absolute Auto 11.3 K/mm3 (1.3-6.7); Neutrophils Percent Auto 78.7 % (45.5-73.1); Platelet Count Result 280 k/mm3 (150-375); Red Blood Count 4.68 M/mm3 (4.6-6.20); Red Cell Distribution Width 13.3 % (11.5-14.5); White Blood Count 14.3 K/mm3 (4.5-10.0)
[2020-08-21 10:43] LABS: Alanine Aminotransferase 19 U/L (4-50); Albumin Level 3.6 g/dL (3.5-5.1); Alkaline Phosphatase 58 U/L (38-126); Anion Gap 8 mmol/L (8-16); Aspartate Amino Transferase 19 U/L (17-59); Bilirubin,Total 0.7 mg/dL (0.2-1.3); Blood Urea Nitrogen 20 mg/dL (9-20); Calcium 8.5 mg/dL (8.4-10.2); Carbon Dioxide 25 mmol/L (22-30); Chloride 99 mmol/L (98-107); Estimated CRCL calculation 64 ml/min; Estimated Glomerular Filt Rate > 60; Glucose 255 mg/dL (75-110); Potassium 3.7 mmol/L (3.4-5.0); Sodium 132 mmol/L (137-145)
[2020-08-21 11:52] LABS: Glucose Point of Care 197 (65-105)
--- NOTE | 2020-08-21 14:04 | PCOTNOTE ---
Attempted to see patient for skilled OT session this PM. Patient was resting, lying supine in bed upon entry with lights dimmed. Patient refused participation in therapy session this date stating, Not today, I'm too tired and sleepy. WOLFGANG stressed importance of participation in therapy and stated therapy will work with him tomorrow and patient stated, We'll see. WOLFGANG stressed again that participation in therapy sessions help with strengthening, healing, and helps to get home. Patient was not seen for OT this date due to patient refusal. Will continue per Plan of Care.
[2020-08-21 14:35] VITALS: BP 126/73; PULSE 78; RESP 16; TEMP 36.4; O2SAT 97
--- NOTE | 2020-08-21 16:35 | PM.IMPN ---
Progress Note: A&P Assessment and Plan (1) DKA (diabetic ketoacidoses): Qualifiers: Diabetes mellitus complication detail: without coma Diabetes mellitus type: type 2 Qualified Code(s): E11.10 - Type 2 diabetes mellitus with ketoacidosis without coma Code(s): E11.10 - Type 2 diabetes mellitus with ketoacidosis without coma Status: Resolved Assessment and Plan: DKA resolved Switched to Lantus and high-dose insulin sliding scale Started on diabetic diet (2) Sepsis: Qualifiers: Sepsis acute organ dysfunction status: unspecified Sepsis type: sepsis due to unspecified organism Qualified Code(s): A41.9 - Sepsis, unspecified organism Code(s): A41.9 - Sepsis, unspecified organism Status: Acute Assessment and Plan: CT scan abdo was negative- Apart from Indeterminate left renal mass, could be hemorrhagic cyst or solid. Chest x-ray negative for infiltrate Patient still have high leukocytosis but clinically does not show any sign or symptom of sepsis Continue IV antibiotics pending culture Patient still have significant leukocytosis Continue antibiotics (3) Altered mental status: Code(s): R41.82 - Altered mental status, unspecified Status: Resolved Assessment and Plan: CT scan of the head is negative. AMS resolved Subjective Date/time seen: 08/21/20 16:35 Interval history: 64 year old man Patient was admitted to the hospital with altered mental status was found to have severe metabolic acidosis secondary to DKA was admitted to the ICU was treated with IV fluid and IV insulin DKA has resolved IV insulin was stopped and patient was switched to Lantus and high-dose insulin sliding scale also patient has significant leukocytosis CT scan of the abdomen and pelvis was negative chest x-ray was negative UA was not significant still have significant leukocytosis patient treated with IV antibiotic pending culture probably the leukocytosis is reactive CT scan of the head was done shows old stroke 08/21: Feels better. Up in chair w/o issues. Denied pain. No GI/ c/o. Review of Systems Review of Systems: All systems reviewed & are unremarkable except as noted in HPI and below Exam Narrative: Exam Narrative: HEENT: PERRL, sclerae nonicteric, pharyngeal mucosa pink and intact NECK: No JVD CHEST: Clear to auscultation. Normal effort. HEART: NL S1/S2, regular, no murmur ABDOMEN: BS+, soft, nontender, no mass, no bruits EXTREMITIES: No cyanosis, edema, or clubbing NEUROLOGIC: CN intact and symmetric to inspection. MUSCULOSKELETAL: Tone and strength symmetric. PSYCH: Alert. Oriented to person, place, and time. Objective Data Vital Signs Vital Signs: Vital Signs - 24 hr 08/20/20 21:09 08/20/20 22:50 08/21/20 08:00 Temperature 98.1 F 97.8 F Pulse Rate 91 96 Respiratory Rate 14 16 Blood Pressure 149/75 H 118/72 Pulse Oximetry 99 100 100 08/21/20 14:35 Temperature 97.6 F Pulse Rate 78 Respiratory Rate 16 Blood Pressure 126/73 Pulse Oximetry 97 Intake/Output Intake/Output: Intake & Output 08/18/20 08/19/20 08/20/20 08/21/20 23:59 23:59 23:59 23:59 Intake Total 1670 2960 2560 740 Output Total 350 2800 1300 950 Balance 2408 479 3859 -210 Meds/Results Medications: Active Medications Generic Name Dose Route Start Last Admin Trade Name Freq PRN Reason Stop Dose Admin Atorvastatin Calcium 20 mg 08/19/20 21:00 08/20/20 21:26 Atorvastatin 20 Mg Tablet PO 20 mg HS ADI Administration Dextrose 12.5 gm 08/17/20 21:36 Dextrose 50% 25 Gm/50 Ml Syringe IV PUSH PRN PRN Hypoglycemia Protocol Enoxaparin Sodium 40 mg 08/18/20 10:00 08/21/20 08:22 Enoxaparin 40 Mg/0.4 Ml Syringe SUB-Q 40 mg DAILY ADI Administration Furosemide 10 mg 08/19/20 09:00 08/21/20 08:23 Furosemide 10 Mg Tablet PO 10 mg DAILY ADI Administration Glucagon 1 mg 08/17/20 21:36 Glucagon For Inj 1 Mg Vial IM
[2020-08-21 17:34] LABS: Glucose Point of Care 158 (65-105)
[2020-08-21] MEDS: QUEtiapine FUMARATE 100 MG TABLET PO (20:13)
[2020-08-21] MEDS: ATORVASTATIN 20 MG TABLET PO (20:13)
[2020-08-21 20:47] VITALS: BP 141/86; PULSE 98; RESP 12; TEMP 37.1; O2SAT 100
[2020-08-21 20:59] LABS: Glucose Point of Care 190 (65-105)
[2020-08-22 06:02] VITALS: BP 133/87; PULSE 98; RESP 14; TEMP 36.4; O2SAT 98
[2020-08-22 07:52] LABS: Glucose Point of Care 170 (65-105)
[2020-08-22] MEDS: MIDODRINE HCL 2.5 MG TABLET BY MOUTH ×2 (08:01→12:21)
[2020-08-22] MEDS: PIOGLITAZONE HCL 30 MG TABLET PO (08:01)
[2020-08-22] MEDS: ENOXAPARIN 40 MG/0.4 ML SYRINGE SUB-Q (08:01)
[2020-08-22] MEDS: FUROSEMIDE 10 MG TABLET PO (08:01)
[2020-08-22] MEDS: lisinopriL 2.5 MG TABLET PO (08:01)
[2020-08-22] MEDS: INSULIN GLARGINE (*BKC) 100 UNITS/ML 33 UNITS SUB-Q (08:02)
[2020-08-22] MEDS: INSULIN ASPART (*BKC) 100 UNITS/ML SUB-Q ×3 (08:03→12:13)
[2020-08-22 08:46] LABS: Hematocrit 40.7 % (42.0-52.0); Hemoglobin 13.6 g/dL (14.0-18.0); Mean Corpuscular HGB Conc 33.4 g/dl (32-36); Mean Corpuscular Hemoglobin 28.9 pg (26-34); Mean Corpuscular Volume 86.6 fl (80-100); Mean Platelet Volume 10.3 fl (7.4-10.4); Platelet Count Result 269 k/mm3 (150-375); Red Cell Distribution Width 13.4 % (11.5-14.5); White Blood Count 15.3 K/mm3 (4.5-10.0)
[2020-08-22 09:08] LABS: Anion Gap 6 mmol/L (8-16); Blood Urea Nitrogen 19 mg/dL (9-20); Calcium 8.4 mg/dL (8.4-10.2); Carbon Dioxide 25 mmol/L (22-30); Chloride 100 mmol/L (98-107); Estimated CRCL calculation 64 ml/min; Estimated Glomerular Filt Rate > 60; Glucose 251 mg/dL (75-110); Potassium 3.9 mmol/L (3.4-5.0); Sodium 131 mmol/L (137-145)
--- NOTE | 2020-08-22 11:02 | PM.DS ---
DS: Admitting Diagnosis Admitting Diagnosis Admitting Diagnosis: DKA DS: Discharge Diagnosis Discharge Diagnosis (1) DKA (diabetic ketoacidoses): Qualifiers: Diabetes mellitus complication detail: without coma Diabetes mellitus type: type 2 Qualified Code(s): E11.10 - Type 2 diabetes mellitus with ketoacidosis without coma Code(s): E11.10 - Type 2 diabetes mellitus with ketoacidosis without coma Status: Resolved Assessment and Plan: DKA resolved Switched to Lantus 33 U, Novolog 7 U TID AC, Pioglitazone 30mg daily. Started on diabetic diet (2) Sepsis: Qualifiers: Sepsis acute organ dysfunction status: unspecified Sepsis type: sepsis due to unspecified organism Qualified Code(s): A41.9 - Sepsis, unspecified organism Code(s): A41.9 - Sepsis, unspecified organism Status: Acute Assessment and Plan: CT scan abdo was negative- Apart from Indeterminate left renal mass, could be hemorrhagic cyst or solid. Chest x-ray negative for infiltrate Patient still have high leukocytosis but clinically does not show any sign or symptom of sepsis Cultures of urine and blood negative, CXR unremarkable. Completed 7 days IV antibiotics. (3) Altered mental status: Code(s): R41.82 - Altered mental status, unspecified Status: Resolved Assessment and Plan: CT scan of the head is negative. AMS resolved, likely metabolic. DS: Summary Hospital Course Reason for hospitalization: DKA Hospital Course: Admitted from [facility] due to altered mental status. Found to be in the diabetic ketoacidosis. Treated with IV insulin until this resolved. Treated with IV ceftriaxone. Cultures of urine and blood negative. CT of the abdomen negative. Chest x-ray unremarkable. Mental status returned to baseline. CT brain unremarkable. By day of discharge she was back to his baseline mental status tolerating his diet and blood sugars were adequately controlled between 170 and 251. Status at Discharge Overall status at discharge: patient is progressing back to baseline Time Spent with Patient Time attestation: Total time spent providing and/or coordinating discharge services: Time spent: Greater than 30 minutes Exam Narrative: Exam Narrative: HEENT: PERRL, sclerae nonicteric, pharyngeal mucosa pink and intact NECK: No JVD CHEST: Clear to auscultation. Normal effort. HEART: NL S1/S2, regular, no murmur ABDOMEN: BS+, soft, nontender, no mass, no bruits EXTREMITIES: No cyanosis, edema, or clubbing NEUROLOGIC: CN intact and symmetric to inspection. MUSCULOSKELETAL: Tone and strength symmetric. PSYCH: Alert. Oriented to person, place, and time. DS: Data Data Completed and Pending Labs on day of discharge: Labs from last 24 hours 08/22/20 08/22/20 08/22/20 08:33 08:33 07:49 WBC 15.3 H RBC 4.70 Hgb 13.6 L Hct 40.7 L MCV 86.6 MCH 28.9 MCHC 33.4 RDW 13.4 Plt Count 269 MPV 10.3 Sodium 131 L Potassium 3.9 Chloride 100 Carbon Dioxide 25 Anion Gap 6 L BUN 19 Creatinine 1.20 Estim Creat Clear Calc 64 Estimated GFR > 60 Glucose 251 H POC Capillary Glucose 170 H Calcium 8.4 08/21/20 08/21/20 08/21/20 20:11 17:21 11:46 WBC RBC Hgb Hct MCV MCH MCHC RDW Plt Count MPV Sodium Potassium Chloride Carbon Dioxide Anion Gap BUN Creatinine Estim Creat Clear Calc Estimated GFR Glucose POC Capillary Glucose 190 H 158 H 197 H Calcium Preliminary micro results at discharge 08/18/20 00:38 Blood Culture - Preliminary Blood 08/18/20 00:38 Blood Culture - Preliminary Blood Discharge Plan Discharge Consulting providers: [place] Quan Discharging Clinician: Krzysztof Paul Patient Disposition: Home, Self-Care Activity: as tolerated Diet: diabetic Patient Instructions: Antib
[2020-08-22 12:10] LABS: Glucose Point of Care 256 (65-105)
[2020-08-22 14:00] VITALS: BP 117/79; PULSE 82; RESP 16; TEMP 36.4; O2SAT 96
== END 2020-08-22 16:10 | DRG 638 ==
LOC: ANHED 23:11 → ANHICU 08-18 08:13 → ANH2MED 08-19 16:24 → ANHICU 08-25 15:16
PROVIDERS: Family Medicine; Internal Medicine; Admitting Provider Internal Medicine; Emergency Provider Emergency Medicine; Visit Provider Internal Medicine
DX: E11.10 Type 2 diabetes mellitus with ketoacidosis without coma (principal); I69.351 Hemiplegia and hemiparesis following cerebral infarction affecting right dominant side; G93.49 Other encephalopathy; F31.9 Bipolar disorder, unspecified
CPT/HCPCS: 36415; 36600; 70450; 71045; 71250; 74176; 80048; 80053; 81001; 82010; 82565; 82805; 82948; 83036; 83605; 83735; 84100; 85025; 85027; 87040; 87086; 93005; 96365; 96375; 97110; 97161; 97165; 97530; 97535; 99285; A9270; J0696; J1630; J1650; J1815; J1940; J2060; J2405; J3370; J3480; J7030; J7120